=== PATIENT | female | born 1975 | race Caucasian/White ===

== ENCOUNTER 2020-03-23 12:00 | Emergency (ER) | payer SELFPAY ==
[~2020-03-23] VITALS: Ht 157.5 cm; Wt 73.6 kg
[~2020-03-23 12:00] MED LIST: BACLOFEN10 M1 PO; BACTRIM DS 8001 TAB PO; CIPRO 250MG TA250 MG PO; CLEOCIN HC150 MG/CAP PO; CLINDAMYCIN HY300 MG PO; CLINDAMYCIN300 MG PO; CLONAZEPAM0.5 MG PO; IBUPROFEN800 MG PO; KETOROLAC10 MG PO; LIORESAL 1010 MG/TAB PO; MIRAPEX0.25 MG PO; MIRAPEX0.5 MG PO; MOTRIN800 MG PO; NO HOME MEDICATIONS; NORCO 325 MG-51 TA1 PO; NORCO 325 MG-51 TAB PO; PEN-VEE K500 MG PO; PERCOCET 325 MG1 TA2 PO; PERCOCET 325 MG1 TA4 PO; PROZAC40 MG PO; REMERON15 M1 PO; TYLENOL 325MG325 M1 PO; ULTRAM 50MG TAB50 MG PO; ULTRAM50 MG PO; ZOFRAN4 M1 PO; ZOLOFT50 MG PO
[2020-03-23] MEDS ORDERED: KLONOPIN 0.5MG0.5 MG PO (12:13)
[2020-03-23 12:37] LABS: HEMATOCRIT 35.5 % (37.0-47.0); HEMOGLOBIN 11.4 g/dL (12.5-16.0); MEAN CELL VOLUME 73 fl (78-100); MEAN CORPUSCULAR HGB CONC 32 g/dL (33-37); MEAN PLATELET VOLUME 8.4 fl (7.4-10.4); PLATELET COUNT 242 K/mm3 (130-400); RED BLOOD COUNT 4.85 M/mm3 (4.10-5.30); RED CELL DISTRIBUTION WIDTH 16.3 % (11.5-14.5); WHITE BLOOD COUNT 17.1 K/mm3 (4.8-10.8)
[2020-03-23 12:46] LABS: MEAN CORPUSCULAR HEMOGLOBIN 24 pg (27-31)
[2020-03-23 13:28] LABS: POTASSIUM 3.5 mmol/L (3.5-5.1)
[2020-03-23 13:29] LABS: CALCIUM 8.5 mg/dL (8.3-10.5)
[2020-03-23 13:41] LABS: LYMPHOCYTE 3 % (20-51); MONOCYTE 2 % (3-10); NEUTROPHILS 95 % (42-75)
[2020-03-23 14:37] LABS: PH-URINE 5.5 (5.0 - 8.0); URINE APPEARANCE CLEAR; URINE BILIRUBIN NEGATIVE (NEGATIVE); URINE BLOOD 50 ery/uL (NEGATIVE); URINE COLOR YELLOW; URINE GLUCOSE NEGATIVE (NEGATIVE); URINE KETONE NEGATIVE (NEGATIVE); URINE LEUKOCYTE ESTERASE 1+ (NEGATIVE); URINE NITRATE NEGATIVE (NEGATIVE); URINE PROTEIN(semi-quant) 1+ mg/dL (NEGATIVE); URINE UROBILINOGEN NORMAL (NORMAL)
[2020-03-23] MEDS ORDERED: CEFDINIR300 MG PO (16:26)
[2020-03-23] MEDS ORDERED: ZOFRAN ODT4 MG PO (16:26)
[2020-03-23 16:32] VITALS: BP 104/67
== END 2020-03-23 17:10 | disposition home or self-care (01) ==
LOC: ED 12:00
PROVIDERS: Family Medicine
DX: N12 Tubulo-interstitial nephritis, not specified as acute or chronic (principal); E86.9 Volume depletion, unspecified; F41.9 Anxiety disorder, unspecified; F43.10 Post-traumatic stress disorder, unspecified; F17.210 Nicotine dependence, cigarettes, uncomplicated; Z20.828 Contact with and (suspected) exposure to other viral communicable diseases
CPT/HCPCS: J0696; J2405; J7030

== ENCOUNTER → 2023-05-28 | Outpatient (CLI) | payer SELFPAY ==
[~2023-05-28] MED LIST changes: +CEFDINIR300 MG PO; +KLONOPIN 0.5MG0.5 MG PO; +ZOFRAN ODT4 MG PO
[2023-05-28 12:49] LABS: CLUE CELLS NOT OBSERVED (Not Observd)
[2023-05-28 12:57] LABS: URINE APPEARANCE CLOUDY (CLEAR); URINE COLOR YELLOW (YELLOW)
[2023-05-28 12:58] LABS: PH-URINE 5.5 (5.0 - 8.0); URINE BILIRUBIN NEGATIVE (NEGATIVE); URINE BLOOD 1+ (NEGATIVE); URINE GLUCOSE NEGATIVE (NEGATIVE); URINE KETONE NEGATIVE (NEGATIVE); URINE LEUKOCYTE ESTERASE 1+ (NEGATIVE); URINE NITRATE NEGATIVE (NEGATIVE); URINE PROTEIN(semi-quant) TRACE (NEGATIVE); URINE WBC >50 /hpf (0-3)
[2023-05-28 12:59] LABS: URINE MUCUS PRESENT (NOT PRESENT)
== END ==
LOC: LAB 12:25
PROVIDERS: Nurse Practitioner Family
DX: Z20.2 Contact with and (suspected) exposure to infections with a predominantly sexual mode of transmission (principal); R10.9 Unspecified abdominal pain